=== PATIENT | male | born 1960 | race African-American/Black ===

== ENCOUNTER 2023-01-14 11:58 | Observation (INO) | payer OTHER ==
[2023-01-14] MEDS ORDERED: ASPIRIN 81 MG PO STA (12:38)
--- NOTE | 2023-01-14 12:40 | ED ---
General Adult HPI - General Chief complaint: Chest Pain Stated complaint: Chest Pain Time Seen by Provider: 01/14/23 12:02 Source: EMS Mode of arrival: EMS Limitations: no limitations - History of Present Illness Initial comments: Dictation was produced using Socratic dictation software. please excuse any grammatical, word or spelling errors. Chief Complaint: 62-year-old male presents to the emergency department for chest pain History of Present Illness: It is a 62-year-old male presents emergency department for chest pain he has past medical history of myocardial infarctions states that his pain is to his left lower anterior chest as sharp in nature. He states that his symptoms feel like when he has had a heart attack in the past. Denies any associated diaphoresis or nausea. Since being in the emergency room and states his symptoms resolved. The ROS documented in this emergency department record has been reviewed and confirmed by me. Those systems with pertinent positive or negative responses have been documented in the HPI. All other systems are other negative and/or noncontributory. - Related Data Allergies Allergy/AdvReac Type Severity Reaction Status Date / Time Iodinated Contrast Media Allergy Rash/Hives Verified 01/14/23 12:06 Review of Systems ROS Statement: Those systems with pertinent positive or pertinent negative responses have been documented in the HPI. ROS Other: All systems not noted in ROS Statement are negative. Past Medical History Past Medical History: Myocardial Infarction ([place]), Syncope Additional Past Surgical History / Comment(s): 1 stent placememt Past Psychological History: Anxiety Smoking Status: Current some day smoker Past Alcohol Use History: None Reported Past Drug Use History: None Reported General Exam - General Exam Comments Initial Comments: PHYSICAL EXAM: General Impression: Alert and oriented x3, not in acute distress HEENT: Normocephalic atraumatic, extra-ocular movements intact, pupils equal and reactive to light bilaterally, mucous membranes moist. Cardiovascular: Heart regular rate and rhythm Chest: Able to complete full sentences, no retractions, no tachypnea Abdomen: abdomen soft, non-tender, non-distended, no organomegaly Musculoskeletal: Pulses present and equal in all extremities, no peripheral edema Motor: no focal deficits noted Neurological: CN II-XII grossly intact, no focal motor or sensory deficits noted Skin: Intact with no visualized rashes Psych: Normal affect and mood Limitations: no limitations Course Vital Signs 01/14/23 13:00 Pulse Rate 76 Respiratory 18 Rate Blood Pressure 149/94 O2 Sat by Pulse 98 Oximetry Medical Decision Making - Medical Decision Making Was pt. sent in by a medical professional or institution (VIJAY Jo, GLUELINE WORKER, urgent care, hospital, or [place] [facility] [place] facility...) When possible be specific @ -No Did you speak to anyone other than the patient for history (EMS, parent, family, police, friend...)? What history was obtained from this source @ -No Did you review nursing and triage notes (agree or disagree)? Why? @ -I reviewed and agree with nursing and triage notes Were old charts reviewed (outside hosp., previous admission, EMS record, old EKG, old radiological studies, urgent care reports/EKG's, [place] [facility] [place] records)? Report findings @ -No old charts were reviewed Differential Diagnosis (chest pain, altered mental status, abdominal pain women, abdominal pain men, vaginal bleeding, musculoskeletal, weakness, fever, dyspnea, syncope, headache, dizziness, GI bleed, back pain, seizure, CVA, palpatations, mental health)? @ -Differential Chest Pain: Stable Angina, Unstable Angina, STEMI, NSTEMI Aortic Dissection, Pneumothorax, Musculoskeletal, Esophageal Spasm GERD, Cholecystitis, Pancreatitis, Zoster, this is not meant to be an all-inclusive list. EKG interpreted by me (3pts min.). @ -My EKG interpretation: Ventricular rate 60, sinus rhythm,. Interval 150, QRS 0, QTc 386. Note EKG for comparison. There does appear to be some ST depressions in inferior leads this EKG suspects ischemic changes. He is asymptomatic at the time of this EKG. Repeat EKG performed approximately 30 minutes later patient still continues to be symptomatic and still has depressions in his inferior leads with no dynamic changes compared to the first. X-rays interpreted by me (1pt min.). @ -Chest x-ray is nonacute CT interpreted by me (1pt min.). @ -None done U/S interpreted by me (1pt. min.). @ -None done What testing was considered but not performed or refused? (CT, X-rays, U/S, labs)? Why? @ -None What meds were considered but not given or refused? Why? @ -None Did you discuss the management of the patient with other professionals (professionals i.e. VIJAY Jo, GLUELINE WORKER, lab, RT, psych nurse, social media sr strategy manager, director custom, teacher, loan officer, rifle case repairer)? Give summary @ -Case is discussed with hospitalist for admission Was smoking cessation discussed for >3mins.? @ -No Was critical care preformed (if so, how long)? @ -No Were there social determinants of health that impacted care today? How? (Homelessness, low income, unemployed, alcoholism, drug addiction, transportation, low edu. Level, literacy, decrease access to med. care, [place] [facility] [place], rehab)? @ -No Was there de-escalation of care discussed even if they declined (Discuss DNR or withdrawal of care, Hospice)? DNR status @ -No What co-morbidities impacted this encounter? (DM, HTN, Smoking, COPD, CAD, Cancer, CVA, ARF, Chemo, Hep., AIDS, mental health diagnosis, sleep apnea, morbid obesity)? @ -None Was patient admitted / discharged? Hospital course, mention meds given and route, prescriptions, significant lab abnormalities, going to OR and other pertinent info. @ -Year-old male past [place] history of coronary artery disease and myocardial infarction presents to the ER for chest pain. Currently a resident at [facility] detox facility. Vital signs upon arrival are within acceptable limits. EKG shows findings consistent suspicious for ischemic changes. We do not have any old EKG. He is asymptomatic at bedside. Laboratory evaluation obtained. Labs are unremarkable. Troponin is negative. Disposition options discussed patient is agreeable for observation admission for cardiac monitoring. Undiagnosed new problem with uncertain prognosis? @ -No Drug Therapy requiring intensive monitoring for toxicity (Heparin, Nitro, Insulin, Cardizem)? @ -No Were any procedures done? @ -No Diagnosis/symptom? Acute, or Chronic, or Acute on Chronic? Uncomplicated (without systemic symptoms) or Complicated (systemic symptoms)? @ -Chest pain Side effects of treatment? @ -No Exacerbation, Progression, or Severe Exacerbation? @ -No Poses a threat to life or bodily function? How? (Chest pain, [place], [place], pneumonia, PE, COPD, DKA, ARF, appy, cholecystitis, CVA, Diverticulitis, Homicidal, Suicidal, threat to staff... and all critical care pts) @ -yes - Lab Data Result diagrams: 01/14/23 12:33 11/25/23 12:33 Lab Results 01/14/23 01/14/23 01/14/23 Range/Units 12:33 12:33 12:33 WBC 5.9 (3.8-10.6) k/uL RBC 4.43 (4.30-5.90) m/uL Hgb 10.5 L (13.0-17.5) gm/dL Hct 34.4 L (39.0-53.0) % MCV 77.7 L (80.0-100.0) fL MCH 23.6 L (25.0-35.0) pg MCHC 30.4 L (31.0-37.0) g/dL RDW 21.7 H (11.5-15.5) % Plt Count 220 (150-450) k/uL MPV 7.1 Neutrophils % 65 % Lymphocytes % 23 % Monocytes % 7 % Eosinophils % 3 % Basophils % 0 % Neutrophils # 3.8 (1.3-7.7) k/uL Lymphocytes # 1.4 (1.0-4.8) k/uL Monocytes # 0.4 (0-1.0) k/uL Eosinophils # 0.2 (0-0.7) k/uL Basophils # 0.0 (0-0.2) k/uL Hypochromasia Marked Anisocytosis Moderate Microcytosis Moderate PT 10.4 (10.0-12.5) sec INR 0.9 (<1.2) APTT 19.2 L (22.0-30.0) sec Sodium 138 (137-145) mmol/L Potassium 4.3 (3.5-5.1) mmol/L Chloride 103 (98-107) mmol/L Carbon Dioxide 29 (22-30) mmol/L Anion Gap 6 mmol/L BUN 13 (9-20) mg/dL Creatinine 0.81 (0.66-1.25) mg/dL Est GFR (CKD-EPI)AfAm >90 (>60 ml/min/1.73 sqM) Est GFR (CKD-EPI)NonAf >90 (>60 ml/min/1.73 sqM) Glucose 93 (74-99) mg/dL Calcium 9.1 (8.4-10.2) mg/dL Magnesium 2.1 (1.6-2.3) mg/dL Total Bilirubin 0.4 (0.2-1.3) mg/dL AST 41 (17-59) U/L ALT 56 H (4-49) U/L Alkaline Phosphatase 54 (38-126) U/L Troponin I (0.000-0.034) ng/mL Total Protein 6.9 (6.3-8.2) g/dL Albumin 4.0 (3.5-5.0) g/dL 01/14/23 Range/Units 12:33 WBC (3.8-10.6) k/uL RBC (4.30-5.90) m/uL Hgb (13.0-17.5) gm/dL Hct (39.0-53.0) % MCV (80.0-100.0) fL MCH (25.0-35.0) pg MCHC (31.0-37.0) g/dL RDW (11.5-15.5) % Plt Count (150-450) k/uL MPV Neutrophils % % Lymphocytes % % Monocytes % % Eosinophils % % Basophils % % Neutrophils # (1.3-7.7) k/uL Lymphocytes # (1.0-4.8) k/uL Monocytes # (0-1.0) k/uL Eosinophils # (0-0.7) k/uL Basophils # (0-0.2) k/uL Hypochromasia Anisocytosis Microcytosis PT (10.0-12.5) sec INR (<1.2) APTT (22.0-30.0) sec Sodium (137-145) mmol/L Potassium (3.5-5.1) mmol/L Chloride (98-107) mmol/L Carbon Dioxide (22-30) mmol/L Anion Gap mmol/L BUN (9-20) mg/dL Creatinine (0.66-1.25) mg/dL Est GFR (CKD-EPI)AfAm (>60 ml/min/1.73 sqM) Est GFR (CKD-EPI)NonAf (>60 ml/min/1.73 sqM) Glucose (74-99) mg/dL Calcium (8.4-10.2) mg/dL Magnesium (1.6-2.3) mg/dL Total Bilirubin (0.2-1.3) mg/dL AST (17-59) U/L ALT (4-49) U/L Alkaline Phosphatase (38-126) U/L Troponin I <0.012 (0.000-0.034) ng/mL Total Protein (6.3-8.2) g/dL Albumin (3.5-5.0) g/dL Disposition Clinical Impression: Chest pain Disposition: ADMITTED IP TO THIS [facility] Condition: Fair Referrals: Nonstaff,Physician [Primary Care Provider] - 1-2 days Decision Time: 13:52
[2023-01-14 12:43] LABS: Anisocytosis Moderate; Basophils % (A) 0 %; Eosinophils # (A) 0.2 k/uL (0-0.7); Eosinophils % (A) 3 %; HCT 34.4 % (39.0-53.0); HGB 10.5 gm/dL (13.0-17.5); Hypochromasia Marked; Lymphocytes # (A) 1.4 k/uL (1.0-4.8); Lymphocytes % (A) 23 %; MCH 23.6 pg (25.0-35.0); MCHC 30.4 g/dL (31.0-37.0); MCV 77.7 fL (80.0-100.0); Mean Platelet Volume 7.1; Microcytosis Moderate; Monocytes # (A) 0.4 k/uL (0-1.0); Monocytes % (A) 7 %; Neutrophils # (A) 3.8 k/uL (1.3-7.7); Neutrophils % (A) 65 %; Platelet Count 220 k/uL (150-450); RBC 4.43 m/uL (4.30-5.90); RDW 21.7 % (11.5-15.5); WBC 5.9 k/uL (3.8-10.6)
[2023-01-14 13:04] LABS: INR 0.9 (<1.2); Prothrombin Time 10.4 sec (10.0-12.5)
[2023-01-14 13:08] LABS: Partial Thromboplastin Time 19.2 sec (22.0-30.0)
--- NOTE | 2023-01-14 13:08 | XR ---
EXAMINATION TYPE: XR chest 2V DATE OF EXAM: 01/14/2023 COMPARISON: NONE HISTORY: Shortness of breath TECHNIQUE: Frontal and lateral views of the chest are obtained. FINDINGS: Scattered senescent parenchymal changes noted. Hyperinflation compatible with COPD. No evidence for infiltrate. No evidence for atelectasis. Heart size is stable. Mediastinal structures are stable and grossly unremarkable. No evidence for hilar prominence. Degenerative changes dorsal spine. IMPRESSION: 1. No evidence for acute pulmonary disease.
[2023-01-14 13:34] LABS: ALT 56 U/L (4-49); AST 41 U/L (17-59); African American GFR (CKD) >90 (>60 ml/min/1.73 sqM); Alkaline Phosphatase 54 U/L (38-126); Anion Gap 6 mmol/L; Blood Urea Nitrogen 13 mg/dL (9-20); Calcium 9.1 mg/dL (8.4-10.2); Carbon Dioxide 29 mmol/L (22-30); Chloride 103 mmol/L (98-107); Glucose 93 mg/dL (74-99); Magnesium 2.1 mg/dL (1.6-2.3); Non-African American GFR(CKD) >90 (>60 ml/min/1.73 sqM); Potassium 4.3 mmol/L (3.5-5.1); Sodium 138 mmol/L (137-145); Total Bilirubin 0.4 mg/dL (0.2-1.3); Total Protein 6.9 g/dL (6.3-8.2)
[2023-01-14] MEDS ORDERED: NITROGLYCERIN SL TABS 0.4 MG TAB SUBLINGUAL PRN (13:46)
[2023-01-14] MEDS ORDERED: ALBUTEROL NEBULIZED 2.5 MG/3 ML INHALATION PRN (16:04)
[2023-01-14] MEDS ORDERED: ACETAMINOPHEN TAB 325 MG TAB PO PRN (16:04)
--- NOTE | 2023-01-14 16:27 | P.HPIM ---
History of Present Illness H&P Date: 01/14/23 Patient is a 62-year-old male with history of alcohol dependence, prior [place], cardiomyopathy, hypertension, GERD, depression, COPD, nicotine dependence, alcohol dependence presenting with chest pain. He has been at [facility] for almost a week. He presented there for alcohol rehab. He claims that he currently drinks about one fifth of gin every day. His last drink is now over one week ago. This is a first of his pain to rehab. Today while walking upstairs he had sudden sharp left-sided chest pain which resolved within a few minutes. He was then sent to the emergency. He did have some shortness of breath during that time, but denied any nausea, vomiting, palpitations, abdominal pain. He denies any recent fevers, chills or urinary or bowel complaints. He sees nitrocellulose operator in [facility]. He smokes 2 or 3 cigarettes per week, denies any illicit drug use. In the ED, temperature was 97.1, pulse 76, respiratory rate 18, blood pressure 149/94, saturating at 98% on room air. WBC 5.9, hemoglobin 10.5, potassium 4.3, creatinine 0.81, magnesium 2.1, troponin negative 2. EKG independently interpreted, shows sinus rhythm with occasional PVCs. It also shows T-wave inversions in the inferior leads. Chest x-ray independently interpreted, shows no acute process. Patient given aspirin in the ED. Being admitted for chest pain workup. Cardiology consulted. Pertinent positives and negatives as discussed in HPI, a complete review of systems was performed and all other systems are negative. Patient seen and examined at bedside. Vital signs reviewed General: nontoxic, no distress, appears at stated age Derm: warm, dry Head: atraumatic, normocephalic, symmetric Eyes: EOMI, no lid lag, anicteric sclera, pupils equal round reactive to light ENT: Nose and ears atraumatic Neck: No thyromegaly, supple Mouth: no lip lesion, mucus membranes moist Cardiovascular: S1S2 reg, no murmur, no edema Lungs: clear to auscultation bilateral, no rhonchi, no rales, no wheeze, no accessory muscle use Abdominal: soft, nontender to palpation, no guarding, no appreciable organomegaly Ext: no gross muscle atrophy, muscle strength muscle strength 5 out of 5 in all 4 extremities, no contractures Neuro: CN II-XII grossly intact Psych: Alert, oriented, appropriate affect Assessment/Plan: Active: Chest pain History of MD Nicotine dependence -Continue aspirin 81 mg, rosuvastatin 40 mg daily -Continue Plavix 75 mg daily -TSH, lipid panel pending -Continue to trend troponin -Continue telemetry monitoring -Cardiology consulted, pending recommendations -Echocardiogram ordered -Counseled regarding smoking cessation Hypertension Cardiomyopathy, unknown EF -Continue amlodipine 5 mg daily, carvedilol 12.5 twice a day, hydralazine 50 mg 3 times a day, Imdur 60 mg daily -entresto 24-26 mg twice a day -Repeat BMP tomorrow Mild microcytic anemia -Unknown baseline -Iron studies ordered -Repeat CBC tomorrow Alcohol dependence -Out of the window for withdrawals -Continue multivitamins, thiamine 100 mg daily Chronic: Chronic pain GERD Depression COPD not in exacerbation The patient is admitted with an anticipated less than 2 midnight stay as observation status for evaluation of chest pain. Surrogate decision-maker: Significant other CODE STATUS: Full code DVT prophylaxis: Subcu heparin Anticipated discharge date: Pending clinical course Anticipated discharge place: Pending clinical course A total of 55 minutes was spent on the care of this complex patient more than 50% of the time was spent in counseling and care coordination. Past Medical History Past Medical History: COPD, Myocardial Infarction ([place]), Syncope Additional Past Medical History / Comment(s): arthritis in bilat knees. pt at [facility] for etoh abuse. he has went through detox already. Last Myocardial Infarction Date:: 2022 History of Any Multi-Drug Resistant Organisms: None Reported Additional Past Surgical History / Comment(s): 1 cardiac stent. Past Anesthesia/Blood Transfusion Reactions: No Reported Reaction Past Psychological History: Anxiety Smoking Status: Current some day smoker Past Alcohol Use History: None Reported Past Drug Use History: None Reported Medications and Allergies Home Medications Medication Instructions Recorded Confirmed Type Acetaminophen Tab [Tylenol] 650 mg PO Q4H PRN 01/14/23 01/14/23 History Albuterol Sulfate [Albuterol 1 - 2 puff PO RT-Q4H PRN 01/14/23 01/14/23 History Sulfate Hfa] Aspirin EC [Ecotrin Low Dose] 81 mg PO DAILY 01/14/23 01/14/23 History Calcium/Magnesium/Zinc/Vitamin D 1 tab PO TID PRN 01/14/23 01/14/23 History Chlorpheniramine Maleate 4 mg PO Q4H PRN 01/14/23 01/14/23 History [Chlor-Trimeton] Clopidogrel [Plavix] 75 mg PO DAILY 01/14/23 01/14/23 History Ergocalciferol (Vitamin D2) 1,250 mcg PO TU 01/14/23 01/14/23 History [Drisdol (50,000 Iu)] Fluoride (Sodium) [Sodium Fluoride] 1 applic DENTAL DIRECTED 01/14/23 1 03/16/22 History Fluticasone/Vilanterol [Breo 1 puff INHALATION RT-DAILY 01/14/23 01/14/23 History Ellipta 200-25 Mcg Inhaler] Gabapentin 600 mg PO TID 01/14/23 01/14/23 History Hyoscyamine Sulfate [Levsin] 0.125 mg PO QID PRN 01/14/23 01/14/23 History Isosorbide Mononitrate ER [Imdur] 60 mg PO DAILY 01/14/23 01/14/23 History Loperamide HCl [Imodium A-D] 4 mg PO QID PRN 01/14/23 01/14/23 History Mirtazapine [Remeron] 30 mg PO HS 01/14/23 01/14/23 History Multivitamins, Thera [Multivitamin 1 tab PO DAILY 01/14/23 01/14/23 History (formulary)] Pantoprazole Sodium [Protonix] 40 mg PO DAILY 01/14/23 01/14/23 History Rosuvastatin Calcium [Crestor] 40 mg PO HS 01/14/23 01/14/23 History Sacubitril/Valsartan [Entresto 24 1 tab PO BID 01/14/23 01/14/23 History mg-26 mg Tablet] Tamsulosin [Flomax] 0.8 mg PO HS 01/14/23 01/14/23 History Vitamin B Complex 1 cap PO DAILY 01/14/23 01/14/23 History amLODIPine [Norvasc] 5 mg PO DAILY 01/14/23 01/14/23 History buPROPion HCL [Wellbutrin XL] 150 mg PO DAILY 01/14/23 01/14/23 History carvediloL [Coreg] 12.5 mg PO BID 01/14/23 01/14/23 History hydrALAZINE HCL [Apresoline] 50 mg PO TID 01/14/23 01/14/23 History ondansetron HCL [Ondansetron HCl] 8 mg PO Q6H PRN 01/14/23 01/14/23 History Allergies Allergy/AdvReac Type Severity Reaction Status Date / Time Iodinated Contrast Media Allergy Rash/Hives Verified 01/14/23 12:06 Physical Exam Vitals: Vital Signs Temp Pulse Pulse Resp BP BP Pulse Ox 01/14/23 14:40 97.1 F L 77 16 146/59 99 01/14/23 14:10 77 18 153/90 96 01/14/23 14:00 77 16 01/14/23 13:00 76 18 149/94 98 Intake and Output 01/14/23 01/14/23 01/14/23 06:59 14:59 22:59 Other: Voiding Method Toilet # Voids 1 Weight 68.492 kg Results CBC & Chem 7: 01/14/23 12:33 01/14/23 12:33 Labs: Abnormal Lab Results - Last 24 Hours (Table) 01/14/23 01/14/23 01/14/23 Range/Units 12:33 12:33 12:33 Hgb 10.5 L (13.0-17.5) gm/dL Hct 34.4 L (39.0-53.0) % MCV 77.7 L (80.0-100.0) fL MCH 23.6 L (25.0-35.0) pg MCHC 30.4 L (31.0-37.0) g/dL RDW 21.7 H (11.5-15.5) % APTT 19.2 L (22.0-30.0) sec ALT 56 H (4-49) U/L Thrombosis Risk Factor Assmnt - Choose All That Apply Any of the Below Risk Factors Present?: Yes Each Factor Represents 1 point: Abnormal pulmonary function (COPD), Age 41-60 years, Obesity (BMI >25) Other Risk Factors: No Thrombosis Risk Factor Assessment Total Risk Factor Score: 3 Thrombosis Risk Factor Assessment Level: Moderate Risk
[2023-01-14] MEDS: carvediloL 12.5 MG TAB PO SCH (17:15)
[2023-01-14] MEDS: MIRTAZAPINE 15 MG TAB PO SCH (20:23)
[2023-01-14] MEDS: TAMSULOSIN 0.4 MG CAP.ER.24H PO SCH (20:24)
[2023-01-14] MEDS: GABAPENTIN 300 MG CAP PO SCH (20:24)
[2023-01-14] MEDS: SACUBITRIL/VALSARTAN 24 MG-26 MG TABLET PO SCH (20:24)
[2023-01-14] MEDS: hydrALAZINE HCL 50 MG TAB PO SCH (20:24)
[2023-01-14] MEDS: ATORVASTATIN 80 MG TAB PO SCH (20:24)
[2023-01-14] MEDS: HEPARIN SODIUM,PORCINE 5,000 UNIT/ML 1 ML VIAL SQ SCH (23:12)
[2023-01-15 04:52] LABS: Anisocytosis Moderate; Basophils % (A) 0 %; Eosinophils # (A) 0.2 k/uL (0-0.7); Eosinophils % (A) 3 %; HCT 31.8 % (39.0-53.0); HGB 9.9 gm/dL (13.0-17.5); Hypochromasia Marked; Lymphocytes # (A) 1.2 k/uL (1.0-4.8); Lymphocytes % (A) 18 %; MCH 24.3 pg (25.0-35.0); MCV 78.3 fL (80.0-100.0); Mean Platelet Volume 8.2; Microcytosis Moderate; Monocytes # (A) 0.6 k/uL (0-1.0); Monocytes % (A) 9 %; Neutrophils # (A) 4.5 k/uL (1.3-7.7); Neutrophils % (A) 68 %; Platelet Count 209 k/uL (150-450); RBC 4.06 m/uL (4.30-5.90); RDW 21.8 % (11.5-15.5); WBC 6.7 k/uL (3.8-10.6)
[2023-01-15 05:03] LABS: African American GFR (CKD) >90 (>60 ml/min/1.73 sqM); Anion Gap 6 mmol/L; Blood Urea Nitrogen 16 mg/dL (9-20); Calcium 8.5 mg/dL (8.4-10.2); Carbon Dioxide 28 mmol/L (22-30); Chloride 101 mmol/L (98-107); Glucose 135 mg/dL (74-99); Non-African American GFR(CKD) >90 (>60 ml/min/1.73 sqM); Sodium 135 mmol/L (137-145)
[2023-01-15] MEDS: SACUBITRIL/VALSARTAN 24 MG-26 MG TABLET PO SCH ×2 (07:53→21:03)
[2023-01-15] MEDS: amLODIPine 5 MG TAB PO SCH (07:53)
[2023-01-15] MEDS: buPROPion XL 150 MG TAB.ER.24H PO SCH (07:53)
[2023-01-15] MEDS: hydrALAZINE HCL 50 MG TAB PO SCH ×3 (07:53→21:03)
[2023-01-15] MEDS: PANTOPRAZOLE 40 MG TABLET PO SCH (07:54)
[2023-01-15] MEDS: ASPIRIN 81 MG PO SCH (07:54)
[2023-01-15] MEDS: carvediloL 12.5 MG TAB PO SCH ×2 (07:54→17:48)
[2023-01-15] MEDS: MULTIVITAMINS, THERA 1 EACH TAB PO SCH (07:54)
[2023-01-15] MEDS: ISOSORBIDE MONONITRATE ER 60 MG TAB.ER.24H PO SCH (07:54)
[2023-01-15] MEDS: CLOPIDOGREL 75 MG TAB PO SCH (07:55)
[2023-01-15] MEDS: THIAMINE 100 MG TAB PO SCH (07:55)
[2023-01-15] MEDS: HEPARIN SODIUM,PORCINE 5,000 UNIT/ML 1 ML VIAL SQ SCH ×3 (07:56→23:26)
[2023-01-15] MEDS: GABAPENTIN 300 MG CAP PO SCH ×3 (08:02→21:02)
[2023-01-15 08:07] VITALS: RESP 16
[2023-01-15] MEDS: SYMBICORT 160-4.5 MCG INHALER INHALATION SCH ×2 (08:37→18:23)
[2023-01-15] MEDS ORDERED: ASPIRIN 325 MG TAB PO SCH (09:00)
[2023-01-15] MEDS ORDERED: NON FORMULARY DRUG (Vitamin B Complex [Vitamin B Complex] 1 EACH Capsule) PO SCH (09:00)
[2023-01-15 09:46] LABS: Reticulocyte % 1.39 % (0.10-1.80)
[2023-01-15 10:16] LABS: % Iron Saturation 9.16 (15.00-50.00); Chol/HDL Ratio 1.93 Ratio; Ferritin 15.3 ng/mL (22.0-322.0); Iron 34 UG/DL (65-175); LDL Cholesterol,Calculated 69.1 mg/dL (0.0-131.0); Total Iron Binding Capacity 371 UG/DL (228-460); VLDL Calculation 8.78 mg/dL (5.00-40.00)
--- NOTE | 2023-01-15 13:09 | P.CRDCN ---
History of Present Illness Consult date: 01/15/23 Chief complaint: Chest pain History of present illness: The patient is a 62 year-old gentleman with a past medical history significant for coronary artery disease and prior stenting of the left circumflex in 2019 as well as hypertension and dyslipidemia and also history of cardiomyopathy according to him. The patient seen on a regular basis [place] director [place] [facility] [place] was seen by him about 2 weeks ago. Currently he is in a rehab facility he was brought there with chest discomfort. He was walking to the elevated when he developed discomfort in the middle of the chest as a tightness on the chest with no radiation to the arms or neck or shoulders or back and no sensitive symptoms of shortness of breath or dizziness or lightheadedness or any feeling of heart racing or fluttering or presyncope or syncope. Currently is chest pain-free. He underwent workup including troponin came in to be unremarkable and EKG showing sinus mechanism with T-wave inversion inferiorly. We don't have an old EKG to compare it to assess if the changes are new or old. Currently he is asymptomatic and he is mechanically stable beside slight sinus tachycardia and hypertension. The examination is remarkable for regular rhythm with a systolic murmur right upper sternal border and clear breathing sounds bilaterally and no edema in the lower extremity is Assessment Chest discomfort CAD was prior stenting of the left circumflex Multiple comorbid conditions including hypertension and dyslipidemia and smoking Plan Acute coronary event was ruled out Further cardiac testing/risk stratification including stress test and echocardiogram Increase the dose of carvedilol Follow-up with the patient Past Medical History Past Medical History: COPD, Myocardial Infarction ([place]), Syncope Additional Past Medical History / Comment(s): arthritis in bilat knees. pt at [place] for etoh abuse. he has went through detox already. Last Myocardial Infarction Date:: 2022 History of Any Multi-Drug Resistant Organisms: None Reported Additional Past Surgical History / Comment(s): 1 cardiac stent. Past Anesthesia/Blood Transfusion Reactions: No Reported Reaction Past Psychological History: Anxiety Smoking Status: Current some day smoker Past Alcohol Use History: None Reported Past Drug Use History: None Reported Medications and Allergies Home Medications Medication Instructions Recorded Confirmed Type Acetaminophen Tab [Tylenol] 650 mg PO Q4H PRN 01/14/23 01/14/23 History Albuterol Sulfate [Albuterol 1 - 2 puff PO RT-Q4H PRN 01/14/23 01/14/23 History Sulfate Hfa] Aspirin EC [Ecotrin Low Dose] 81 mg PO DAILY 01/14/23 01/14/23 History Calcium/Magnesium/Zinc/Vitamin D 1 tab PO TID PRN 01/14/23 01/14/23 History Chlorpheniramine Maleate 4 mg PO Q4H PRN 01/14/23 01/14/23 History [Chlor-Trimeton] Clopidogrel [Plavix] 75 mg PO DAILY 01/14/23 01/14/23 History Ergocalciferol (Vitamin D2) 1,250 mcg PO TU 01/14/23 01/14/23 History [Drisdol (50,000 Iu)] Fluoride (Sodium) [Sodium Fluoride] 1 applic DENTAL DIRECTED 01/14/23 01/14/23 History Fluticasone/Vilanterol [Breo 1 puff INHALATION RT-DAILY 01/14/23 01/14/23 History Ellipta 200-25 Mcg Inhaler] Gabapentin 600 mg PO TID 01/14/23 01/14/23 History Hyoscyamine Sulfate [Levsin] 0.125 mg PO QID PRN 01/14/23 01/14/23 History Isosorbide Mononitrate ER [Imdur] 60 mg PO DAILY 01/14/23 01/14/23 History Loperamide HCl [Imodium A-D] 4 mg PO QID PRN 01/14/23 01/14/23 History Mirtazapine [Remeron] 30 mg PO HS 01/14/23 01/14/23 History Multivitamins, Thera [Multivitamin 1 tab PO DAILY 01/14/23 01/14/23 History (formulary)] Pantoprazole Sodium [Protonix] 40 mg PO DAILY 01/14/23 01/14/23 History Rosuvastatin Calcium [Crestor] 40 mg PO HS 01/14/23 01/14/23 History Sacubitril/Valsartan [Entresto 24 1 tab PO BID 01/14/23 01/14/23 History mg-26 mg Tablet] Tamsulosin [Flomax] 0.8 mg PO HS 01/14/23 01/14/23 History Vitamin B Complex 1 cap PO DAILY 01/14/23 01/14/23 History amLODIPine [Norvasc] 5 mg PO DAILY 01/14/23 01/14/23 History buPROPion HCL [Wellbutrin XL] 150 mg PO DAILY 01/14/23 01/14/23 History carvediloL [Coreg] 12.5 mg PO BID 01/14/23 01/14/23 History hydrALAZINE HCL [Apresoline] 50 mg PO TID 01/14/23 01/14/23 History ondansetron HCL [Ondansetron HCl] 8 mg PO Q6H PRN 01/14/23 01/14/23 History Allergies Allergy/AdvReac Type Severity Reaction Status Date / Time Iodinated Contrast Media Allergy Rash/Hives Verified 01/14/23 12:06 Physical Exam Vitals: Vital Signs Temp Pulse Pulse Resp BP BP BP 01/15/23 08:39 01/15/23 08:00 87 16 01/15/23 07:00 98.6 F 87 16 145/87 01/15/23 03:38 98.7 F 90 18 162/89 01/14/23 18:51 97.7 F 77 18 145/87 01/14/23 14:40 97.1 F L 77 16 146/59 01/14/23 14:10 77 18 153/90 01/14/23 14:00 77 16 Pulse Ox 01/15/23 08:39 97 01/15/23 08:00 01/15/23 07:00 97 01/15/23 03:38 97 01/14/23 18:51 98 01/14/23 14:40 99 01/14/23 14:10 96 01/14/23 14:00 Intake and Output 01/14/23 01/15/23 01/15/23 22:59 06:59 14:59 Intake Total 460 480 Balance 460 480 Intake: Oral 460 480 Other: Voiding Method Toilet # Voids 2 1 Results 01/15/23 04:41 01/15/23 04:41 Cardiac Enzymes 01/14/23 01/14/23 01/14/23 Range/Units 12:33 12:33 15:06 AST 41 (17-59) U/L Troponin I <0.012 <0.012 (0.000-0.034) ng/mL 01/14/23 Range/Units 18:20 AST (17-59) U/L Troponin I <0.012 (0.000-0.034) ng/mL Coagulation 01/14/23 Range/Units 12:33 PT 10.4 (10.0-12.5) sec APTT 19.2 L (22.0-30.0) sec Lipids 01/15/23 Range/Units 04:41 Triglycerides 43.90 (0.00-149.00) mg/dL Cholesterol 162.00 (0.00-200.00) mg/dL HDL Cholesterol 84.10 H (40.00-60.00) mg/dL Cholesterol/HDL Ratio 1.93 Ratio CBC 01/15/23 Range/Units 04:41 WBC 6.7 (3.8-10.6) k/uL RBC 4.06 L (4.30-5.90) m/uL Hgb 9.9 L (13.0-17.5) gm/dL Hct 31.8 L (39.0-53.0) % Plt Count 209 (150-450) k/uL Comprehensive Metabolic Panel 01/14/23 01/15/23 Range/Units 12:33 04:41 Sodium 138 135 L (137-145) mmol/L Potassium 4.3 4.0 (3.5-5.1) mmol/L Chloride 103 101 (98-107) mmol/L Carbon Dioxide 29 28 (22-30) mmol/L BUN 13 16 (9-20) mg/dL Creatinine 0.81 0.92 (0.66-1.25) mg/dL Glucose 93 135 H (74-99) mg/dL Calcium 9.1 8.5 (8.4-10.2) mg/dL AST 41 (17-59) U/L ALT 56 H (4-49) U/L Alkaline Phosphatase 54 (38-126) U/L Total Protein 6.9 (6.3-8.2) g/dL Albumin 4.0 (3.5-5.0) g/dL Current Medications Generic Name Dose Route Start Last Admin Trade Name Freq PRN Reason Stop Dose Admin Acetaminophen 650 mg 01/14/23 16:04 Acetaminophen Tab 325 Mg Tab PO Q4H PRN Fever and/ or Pain Albuterol Sulfate 2.5 mg 01/14/23 16:04 Albuterol Nebulized 2.5 Mg/3 Ml INHALATION RT-Q4H PRN Shortness Of Breath Amlodipine Besylate 5 mg 01/15/23 09:00 01/15/23 07:53 Amlodipine 5 Mg Tab PO 5 mg DAILY YESI Administration Aspirin 81 mg 01/15/23 09:00 01/15/23 07:54 Aspirin 81 Mg PO 81 mg DAILY YESI Administration Atorvastatin Calcium 80 mg 01/14/23 21:00 01/14/23 20:24 Atorvastatin 80 Mg Tab PO 80 mg HS YESI Administration Budesonide/Formoterol Fumarate 2 puff 01/15/23 08:00 01/15/23 08:37 Symbicort 160-4.5 Mcg Inhaler INHALATION 2 puff RT-BID YESI Administration Bupropion HCl 150 mg 01/15/23 09:00 01/15/23 07:53 Bupropion Xl 150 Mg Tab.Er.24h PO 150 mg DAILY YESI Administration Carvedilol 12.5 mg 01/14/23 17:30 01/15/23 07:54 Carvedilol 12.5 Mg Tab PO 12.5 mg BID-W/MEALS YESI Administration Clopidogrel Bisulfate 75 mg 01/15/23 09:00 01/15/23 07:55 Clopidogrel 75 Mg Tab PO 75 mg DAILY YESI Administration Gabapentin 600 mg 01/14/23 22:00 01/15/23 08:02 Gabapentin 300 Mg Cap PO 600 mg TID YESI Administration Heparin Sodium (Porcine) 5,000 unit 01/15/23 00:00 01/15/23 07:56 Heparin Sodium,Porcine 5,000 Unit/Ml 1 Ml Vial SQ 5,000 unit Q8HR YESI Administration Hydralazine HCl 50 mg 01/14/23 22:00 01/15/23 07:53 Hydralazine Hcl 50 Mg Tab PO 50 mg TID YESI Administration Isosorbide Mononitrate 60 mg 01/15/23 09:00 01/15/23 07:54 Isosorbide Mononitrate Er 60 Mg Tab.Er.24h PO 60 mg DAILY YESI Administration Mirtazapine 30 mg 01/14/23 21:00 01/14/23 20:23 Mirtazapine 15 Mg Tab PO 30 mg HS YESI Administration Multivitamins 1 each 01/15/23 09:00 01/15/23 07:54 Multivitamins, Thera 1 Each Tab PO 1 each DAILY YESI Administration Nitroglycerin 0.4 mg 01/14/23 13:46 Nitroglycerin Sl Tabs 0.4 Mg Tab SUBLINGUAL Q5M PRN Chest Pain Pantoprazole Sodium 40 mg 01/15/23 09:00 01/15/23 07:54 Pantoprazole 40 Mg Tablet PO 40 mg DAILY YESI Administration Sacubitril/Valsartan 1 each 01/14/23 21:00 01/15/23 07:53 Sacubitril/Valsartan 24 Mg-26 Mg Tablet PO 1 each BID YESI Administration Tamsulosin HCl 0.8 mg 01/14/23 21:00 01/14/23 20:24 Tamsulosin 0.4 Mg Cap.Er.24h PO 0.8 mg HS YESI Administration Thiamine HCl 100 mg 01/15/23 09:00 01/15/23 07:55 Thiamine 100 Mg Tab PO 100 mg DAILY YESI Administration Intake and Output 01/14/23 01/15/23 01/15/23 22:59 06:59 14:59 Intake Total 460 480 Balance 460 480 Intake: Oral 460 480 Other: Voiding Method Toilet # Voids 2 1 01/15/23 04:41 01/15/23 04:41
--- NOTE | 2023-01-15 14:36 | P.PN ---
Subjective Progress Note Date: 01/15/23 Hospital Course: 62-year-old male with history of alcohol dependence, prior [place], cardiomyopathy, hypertension, GERD, depression, COPD, nicotine dependence, alcohol dependence presenting with chest pain. In the ED, temperature was 97.1, pulse 76, respiratory rate 18, blood pressure 149/94, saturating at 98% on room air. WBC 5.9, hemoglobin 10.5, potassium 4.3, creatinine 0.81, magnesium 2.1, troponin negative 2. EKG independently interpreted, shows sinus rhythm with occasional PVCs. It also shows T-wave inversions in the inferior leads. Chest x-ray independently interpreted, shows no acute process. Patient given aspirin in the ED. Being admitted for chest pain workup. Cardiology consulted. Pertinent Imaging: Subjective: Pertinent positives and negatives as discussed above, a complete review of systems was performed and all other systems are negative. Vitals Signs Reviewed. General: nontoxic, no distress, appears at stated age Derm: warm, dry Head: atraumatic, normocephalic, symmetric Eyes: EOMI, no lid lag, anicteric sclera, pupils equal round reactive to light ENT: Nose and ears atraumatic Neck: No thyromegaly, supple Mouth: no lip lesion, mucus membranes moist Cardiovascular: S1S2 reg, no murmur, no edema Lungs: clear to auscultation bilateral, no rhonchi, no rales, no wheeze, no accessory muscle use Abdominal: soft, nontender to palpation, no guarding, no appreciable organomegaly Ext: no gross muscle atrophy, muscle strength muscle strength 5 out of 5 in all 4 extremities, no contractures Neuro: CN II-XII grossly intact Psych: Alert, oriented, appropriate affect Data Reviewed Today: Pertinent Labs: Hemoglobin 9.9, magnesium 2, potassium 4, creatinine 0.92, total iron 34, TIBC 371, percent saturation 9.16, ferritin 15.3, troponin negative 3, total cholesterol 162, LDL 69: Imaging: EKG independently interpreted from this morning shows similar inferior lead Assessment and Plan: Patient needs close monitoring. Active: Chest pain, ACS ruled out History of [place] History of CAD Nicotine dependence -Continue aspirin 81 mg, rosuvastatin 40 mg daily -Continue Plavix 75 mg daily -Continue telemetry monitoring -Cardiology note reviewed, pending echocardiogram and stress test -Counseled regarding smoking cessation Hypertension Cardiomyopathy, unknown EF -Continue amlodipine 5 mg daily, carvedilol 12.5 twice a day, hydralazine 50 mg 3 times a day, Imdur 60 mg daily -entresto 24-26 mg twice a day -Repeat BMP tomorrow -Echocardiogram pending Iron deficiency anemia -Patient needs outpatient colonoscopy, if not previously completed -Repeat CBC tomorrow -Started on iron supplements Alcohol dependence -Continue multivitamins, thiamine 100 mg daily Chronic: Chronic pain GERD Depression COPD not in exacerbation DVT ppx: Subcu heparin Code status: Full code Anticipated discharge place: Pending clinical course Anticipated discharge time: Pending clinical course Objective - Vital Signs Vital signs: Vital Signs Temp 98.6 F 01/15/23 07:00 Pulse 87 01/15/23 14:00 Resp 16 01/15/23 14:00 BP 145/87 01/15/23 07:00 Pulse Ox 97 01/15/23 08:39 FiO2 Intake & Output 01/14/23 01/15/23 01/15/23 18:59 06:59 18:59 Intake Total 460 480 Balance 460 480 Weight 68.492 kg Intake: Oral 460 480 Other: Voiding Method Toilet Toilet # Voids 1 1 3 - Labs CBC & Chem 7: 01/15/23 04:41 01/15/23 04:41 Labs: Abnormal Lab Results - Last 24 Hours (Table) 01/15/23 01/15/23 01/15/23 Range/Units 04:41 04:41 04:41 RBC 4.06 L (4.30-5.90) m/uL Hgb 9.9 L (13.0-17.5) gm/dL Hct 31.8 L (39.0-53.0) % MCV 78.3 L (80.0-100.0) fL MCH 24.3 L (25.0-35.0) pg RDW 21.8 H (11.5-15.5) % Sodium 135 L (137-145) mmol/L Glucose 135 H (74-99) mg/dL Iron 34 L (65-175) UG/DL % Saturation 9.16 L (15.00-50.00) Ferritin 15.3 L (22.0-322.0) ng/mL HDL Cholesterol 84.10 H (40.00-60.00) mg/dL
[2023-01-15] MEDS: ASCORBIC ACID 500 MG TAB PO SCH (15:41)
[2023-01-15] MEDS: FERROUS SULFATE 325 MG TAB PO SCH (15:41)
[2023-01-15] MEDS: TAMSULOSIN 0.4 MG CAP.ER.24H PO SCH (21:02)
[2023-01-15] MEDS: ATORVASTATIN 80 MG TAB PO SCH (21:02)
[2023-01-15] MEDS: MIRTAZAPINE 15 MG TAB PO SCH (21:02)
[2023-01-16] MEDS ORDERED: AMINOPHYLLINE 500 MG/20 ML VIAL IV PRN (06:00)
[2023-01-16] MEDS ORDERED: CAFFEINE CITRATE 60 MG/3 ML VIAL IV PRN (06:00)
[2023-01-16] MEDS ORDERED: REGADENOSON 0.4 MG/5 ML SYRINGE IV PRN (06:00)
[2023-01-16] MEDS: carvediloL 12.5 MG TAB PO SCH (06:16)
[2023-01-16] MEDS ORDERED: REGADENOSON 0.4 MG/5 ML SYRINGE IV ONE (08:00)
[2023-01-16 10:58] LABS: HCT 33.6 % (39.6-50.0); HGB 9.9 g/dL (13.0-17.0); MCHC 29.5 g/dL (32.0-37.0); Mean Platelet Volume 10.6 FL (9.5-12.2); NRBC Per 100 WBC 0 X 10*3/uL (0.00-0.01); Platelet Count 267 X 10*3/uL (140-440); RBC 4.31 X 10*6/uL (4.40-5.60); WBC 6.69 X 10*3/uL (4.50-10.00)
--- NOTE | 2023-01-16 11:04 | P.PN ---
Subjective Progress Note Date: 01/16/23 The patient is a 62 year-old gentleman with a past medical history significant for coronary artery disease and prior stenting of the left circumflex in 2019 as well as hypertension and dyslipidemia and also history of cardiomyopathy according to him. The patient seen on a regular basis by a business analytics director at [facility] [place]. He was seen by him about 2 weeks ago. Currently he is in a rehab facility he was brought there with chest discomfort. He was walking to the elevated when he developed discomfort in the middle of the chest as a tightness on the chest with no radiation to the arms or neck or shoulders or back and no sensitive symptoms of shortness of breath or dizziness or lightheadedness or any feeling of heart racing or fluttering or presyncope or syncope. Currently is chest pain-free. He underwent workup including troponin came in to be unremarkable and EKG showing sinus mechanism with T-wave inversion inferiorly. We don't have an old EKG to compare it to assess if the changes are new or old. Currently he is asymptomatic and he is mechanically stable beside slight sinus tachycardia and hypertension. The examination is remarkable for regular rhythm with a systolic murmur right upper sternal border and clear breathing sounds bilaterally and no edema in the lower extremity is 01/16 Patient is seen today in follow-up. He is scheduled for Lexiscan stress test today. Coreg dose was increased yesterday. Blood pressure 127/80, heart rate in the 70s and 80s. Pulse ox 94% on room air and afebrile. Hemoglobin 9.9. Physical Examination Gen: This is a 62-year-old male appears to be in no acute distress. HEENT: Head is atraumatic, normocephalic. Pupils equal, round. Sclerae is anicteric. LUNGS: Clear to auscultation. No wheezes or rhonchi. No intercostal retractio ns. HEART: Regular rate and rhythm. Systolic murmur. ABDOMEN: Soft. Bowel sounds are present. No masses. No tenderness. EXTREMITIES: No pedal edema. Assessment Chest discomfort CAD was prior stenting of the left circumflex Multiple comorbid conditions including hypertension and dyslipidemia and smoking Plan Acute coronary event was ruled out Further cardiac testing/risk stratification including stress test and echocardiogram If Lexiscan stress test is unremarkable, patient is cleared for discharge from cardiology and may follow-up with his primary business analytics director in 1-2 weeks. Continue increased dose of carvedilol Follow-up with the patient Nurse practitioner note has been reviewed, I agree with the documented findings and plan of care. Patient was seen and examined. Objective - Vital Signs Vital signs: Vital Signs Temp 98.8 F 01/16/23 07:00 Pulse 87 01/16/23 07:00 Resp 16 01/16/23 07:00 BP 127/80 01/16/23 07:00 Pulse Ox 94 L 01/16/23 07:00 FiO2 Intake & Output 01/15/23 01/16/23 01/16/23 18:59 06:59 18:59 Intake Total 1200 Balance 1200 Intake: Oral 1200 Other: Voiding Method Toilet Toilet # Voids 3 0 - Labs CBC & Chem 7: 01/16/23 06:12 01/15/23 04:41 Labs: Abnormal Lab Results - Last 24 Hours (Table) 01/15/23 Range/Units 04:41 Iron 34 L (65-175) UG/DL % Saturation 9.16 L (15.00-50.00) Ferritin 15.3 L (22.0-322.0) ng/mL HDL Cholesterol 84.10 H (40.00-60.00) mg/dL
[2023-01-16] MEDS: CLOPIDOGREL 75 MG TAB PO SCH (11:09)
[2023-01-16] MEDS: HEPARIN SODIUM,PORCINE 5,000 UNIT/ML 1 ML VIAL SQ SCH (11:09)
[2023-01-16] MEDS: amLODIPine 5 MG TAB PO SCH (11:10)
[2023-01-16] MEDS: PANTOPRAZOLE 40 MG TABLET PO SCH (11:10)
[2023-01-16] MEDS: GABAPENTIN 300 MG CAP PO SCH (11:10)
[2023-01-16] MEDS: MULTIVITAMINS, THERA 1 EACH TAB PO SCH (11:10)
[2023-01-16] MEDS: ASCORBIC ACID 500 MG TAB PO SCH (11:10)
[2023-01-16] MEDS: ASPIRIN 81 MG PO SCH (11:10)
[2023-01-16] MEDS: FERROUS SULFATE 325 MG TAB PO SCH (11:10)
[2023-01-16] MEDS: THIAMINE 100 MG TAB PO SCH (11:10)
[2023-01-16] MEDS: buPROPion XL 150 MG TAB.ER.24H PO SCH (11:11)
[2023-01-16] MEDS: hydrALAZINE HCL 50 MG TAB PO SCH (11:11)
[2023-01-16] MEDS: ISOSORBIDE MONONITRATE ER 60 MG TAB.ER.24H PO SCH (11:11)
[2023-01-16] MEDS: SACUBITRIL/VALSARTAN 24 MG-26 MG TABLET PO SCH (11:11)
[2023-01-16 11:47] LABS: Acanthocytes 2+; Anisocytosis (M) 2+; Basophils # (A) 0.03 X 10*3/uL (0.00-0.10); Basophils % (A) 0.4 %; Elliptocytes 2+; Eosinophils # (A) 0.17 X 10*3/uL (0.04-0.35); Eosinophils % (A) 2.5 %; Hypochromasia (M) 2+; Lymphocytes # (A) 1.33 X 10*3/uL (0.90-5.00); Lymphocytes % (A) 19.9 %; Microcytosis (M) 2+; Monocytes # (A) 0.89 X 10*3/uL (0.20-1.00); Monocytes % (A) 13.3 %; Neutrophils # (A) 4.24 X 10*3/uL (1.80-7.70); Neutrophils % (A) 63.5 %
--- NOTE | 2023-01-16 11:52 | NM ---
EXAMINATION TYPE: NM stress lexiscan cardiolite DATE OF EXAM: 01/16/2023 COMPARISON: NONE CLINICAL INDICATION: Male, 62 years old with history of cp; TECHNIQUE: After the intravenous administration of 9.63 mCi Tc 99m Sestamibi - Cardiolite resting SP ECT images acquired 45 minutes post injection. The patient received 0.4mg Lexiscan, 25.8 mCi Tc 99m Sestamibi - Stress images obtained [address] injection FINDINGS: Review of stress and rest SPECT images demonstrates area of fixed defect involving the inferior later al wall with a small area of stress-induced reversibility not excluded. Gated analysis shows normal wall motion with an estimated left ventricular ejection fraction of 41 %. Report called to patient's nurse 11:48 AM 01/16/2023. IMPRESSION: 1. Small area of stress-induced reversible ischemia inferolateral wall. 2. Ejection fraction of 41%..
--- NOTE | 2023-01-16 11:52 | CA ---
Exercise Stress Test Report Name: Herb De Leon Exam Date: 01/16/2023 09:43 Exam Location: [facility] Ht (in): 65 Wt (lb): 151 BSA: 1.76 Ordering Phys: Matheus Rosas MD Referring Phys: CHAN,, Technologist: LISA Age: 62 Gender: M : 1960 Procedure CPT: Indications: Reflex order-Stress test ICD-10 Codes: Patient History: CHEST PAIN, DIFFICULTY IN BREATHING, ANGINA, HTN, ELEVATED CHOLESTEROL LEVELS, FAMILY HX OF HEART DISEASE, CURRENT SMOKER 0.25 PPD X 40 YEARS, PRIOR AR, PRIOR CATH, PRIOR STENT, COPD Medications: Meds past 24 hrs: Pretest Chest Pain: STRESS TEST Persantine Protocol Exercise Duration (min:sec): 02:[address] Depressions (mm): Angina Score: Morales Score: Resting HR (bpm): 75 Peak HR (bpm): 117 Resting BP (mmHg): 111 / 89 Peak BP (mmHg): 140 / 89 MPHR: 160 Target HR: 136 % MPHR: 73 METS: 1.0 Total Dose: Peak Dose: Atropine: Double Product: 06264 BP Response: Stress Termination: INFUSION COMPLETE Stress Symptoms: NO SYMPTOMS Stress Summary: ECG ANALYSIS Resting ECG: Stress ECG: CONCLUSIONS At baseline EKG showed normal sinus rhythm, normal axis, T-wave inversions and ST depressions V5 through V6, 2, 3, aVF, small Q wave in lead aVL with minimal 0.[address] elevation. Patient recieved IV infusion of Lexiscan 0.4mg and at peak infusion EKG showed no significant changes from baseline. Conclusions: 1. Nonspecific stress EKG portion second baseline EKG abnormalities 2. Nuclear imaging to be reported separately. Dr. Florentin Butt DO (Electronically Signed) Final Date: 16 January 2023 11:51
[2023-01-16] MEDS: SYMBICORT 160-4.5 MCG INHALER INHALATION SCH (12:43)
--- NOTE | 2023-01-16 14:15 | CA ---
Transthoracic Echo Report Name: Herb De Leon Age: 62 Gender: M : 1960 Exam Date: 01/16/2023 10:47 Exam Location: [facility] Ht (in): 65 Wt (lb): 151 Ordering Physician: Pascual Avila MD Attending/Referring Phys: Aged Or Disabled Carer Rhina Tan RDCS Procedure CPT: Indications: CP Cardiac Hx: Technical Quality: Good Contrast 1: Total Dose (mL): Contrast 2: Total Dose (mL): MEASUREMENTS (Male / Female) Normal Values 2D ECHO LV Diastolic Diameter PLAX 4.5 cm 4.2 - 5.9 / 3.9 - 5.3 cm LV Systolic Diameter PLAX 3.1 cm IVS Diastolic Thickness 1.1 cm 0.6 - 1.0 / 0.6 - 0.9 cm LVPW Diastolic Thickness 1.0 cm 0.6 - 1.0 / 0.6 - 0.9 cm LV Relative Wall Thickness 0.5 RV Internal Dim ED PLAX 2.8 cm LA Systolic Diameter LX 3.0 cm 3.0 - 4.0 / 2.7 - 3.8 cm LV Diastolic Volume MOD 4C 88.6 cm??? LV Systolic Volume MOD 4C 51.7 cm??? LV Ejection Fraction MOD 4C 41.6 % LV Cardiac Index MOD 4C 1486.6 cm???/min???m??? LV Diastolic Length 4C 7.9 cm LV Systolic Length 4C 6.9 cm LV Diastolic Volume MOD 2C 92.1 cm??? LV Systolic Volume MOD 2C 40.1 cm??? LV Ejection Fraction MOD 2C 56.4 % LV Cardiac Index MOD 2C 2098.4 cm???/min???m??? LV Diastolic Length 2C 7.8 cm LV Systolic Length 2C 6.4 cm LA Volume 45.7 cm??? 18 - 58 / 22 - 52 cm??? LA Volume Index 25.6 cm???/m??? 16 - 28 cm???/m??? M-MODE Aortic Root Diameter MM 3.4 cm MV E Point Septal Separation 1.1 cm AV Cusp Separation MM 2.5 cm DOPPLER AV Peak Velocity 116.0 cm/s AV Peak Gradient 5.4 mmHg AI Peak Velocity 255.3 cm/s AI Peak Gradient 26.1 mmHg AI Pressure Half Time 641.3 ms MV Area PHT 2.0 cm??? Mitral E Point Velocity 54.5 cm/s Mitral A Point Velocity 71.3 cm/s Mitral E to A Ratio 0.8 MV Deceleration Time 380.7 ms TR Peak Velocity 202.2 cm/s TR Peak Gradient 16.4 mmHg Right Ventricular Systolic Press 21.4 mmHg FINDINGS Left Ventricle Left ventricular ejection fraction is estimated at 40-45 %. Left ventricular cavity size normal. Left ventricular wall thickness normal. Right Ventricle Normal right ventricular size and function. Right ventricular systolic pressure within normal limits. Right Atrium Normal right atrial size. Left Atrium Normal left atrial size. Mitral Valve Structurally normal mitral valve. No mitral stenosis, regurgitation or prolapse. Aortic Valve Trileaflet aortic valve. Thickened aortic valve without stenosis. Tricuspid Valve Structurally normal tricuspid valve. Trace to mild tricuspid regurgitation. Pulmonic Valve Structurally normal pulmonic valve. Trace to mild pulmonic regurgitation. Pericardium No pericardial effusion. Aorta Normal size aortic root and proximal ascending aorta. CONCLUSIONS Left ventricular ejection fraction 40-45% Mild tricuspid regurgitation RVSP 21 No pericardial effusion Previewed by: Dr. Florentin Butt DO (Electronically Signed) Final Date: 16 January 2023 14:14
--- NOTE | 2023-01-16 15:15 | P.DS ---
Providers Date of admission: 01/14/23 13:47 Expected date of discharge: 01/16/23 Attending physician: Pascual Avila MD Consults: 01/14/23 13:46 Consult Physician Urgent Consulting Provider: Matheus Rosas Consult Reason/Comments: chest pain Do you want consulting provider notified?: Yes Primary care physician: Physician Nonstaff Hospital Course: Discharge Diagnosis: Non-anginal chest pain History of NV History of CAD Nicotine dependence Hypertension Ischemic cardiomyopathy, EF 40-45% Iron deficiency anemia Alcohol dependence Hospital Course: 62-year-old male with history of alcohol dependence, prior NV, cardiomyopathy, hypertension, GERD, depression, COPD, nicotine dependence, alcohol dependence presenting with chest pain. In the ED, temperature was 97.1, pulse 76, respiratory rate 18, blood pressure 149/94, saturating at 98% on room air. WBC 5.9, hemoglobin 10.5, potassium 4.3, creatinine 0.81, magnesium 2.1, troponin negative 2. EKG independently interpreted, shows sinus rhythm with occasional PVCs. It also shows T-wave inversions in the inferior leads. Chest x-ray independently interpreted, shows no acute process. Patient given aspirin in the ED. Being admitted for chest pain workup. Cardiology consulted. Echocardiogram showed LV EF of 40-45%, mild tricuspid regurgitation, RVSP 21. Stress test showed small area of stress-induced reversible ischemia at the inferior lateral wall. Per cardiology, he can follow up outpatient. No further interventions needed while in the hospital. He is also found to have iron deficiency anemia. Reportedly, patient had a colonoscopy 2-3 months ago where polyps were found. He is unsure how many polyps. He was told he did not have any cancerous/precancerous lesions. Will follow up with his GI specialist for repeat colonoscopy as scheduled. Patient seen and examined at bedside. Vital signs reviewed and stable. General: nontoxic, no distress, appears at stated age Derm: warm, dry Head: atraumatic, normocephalic, symmetric Eyes: EOMI, no lid lag, anicteric sclera Mouth: no lip lesion, mucus membranes moist Cardiovascular: S1S2 reg, no murmur Lungs: CTA bilateral, no rhonchi, no rales , no accessory muscle use Abdominal: soft, nontender to palpation, no guarding, no appreciable organomegaly Ext: no gross muscle atrophy, no edema, no contractures Neuro: CN II-XI grossly intact, no focal neuro deficits Psych: Alert, oriented, appropriate affect A total of 33 minutes of time were spent preparing this complex discharge summary. Patient was discharged on 01/16/23 at 15:11 . Patient Condition at Discharge: Stable Plan - Discharge Summary Discharge Rx Participant: No New Discharge Prescriptions: New Ferrous Sulfate [Iron (65 MG Elemental)] 325 mg PO W/LUNCH #60 tab Ascorbic Acid [Vitamin C] 500 mg PO DAILY #60 tab carvediloL [Coreg*] 25 mg PO BID-W/MEALS #60 tab Thiamine [Vitamin B-1] 100 mg PO DAILY #60 tab Continue Hyoscyamine Sulfate [Levsin] 0.125 mg PO QID PRN PRN Reason: Gi Upset Chlorpheniramine Maleate [Chlor-Trimeton] 4 mg PO Q4H PRN PRN Reason: Allergy Symptoms Calcium/Magnesium/Zinc/Vitamin D 1 tab PO TID PRN PRN Reason: CRAMPING Rosuvastatin Calcium [Crestor] 40 mg PO HS Pantoprazole Sodium [Protonix] 40 mg PO DAILY Mirtazapine [Remeron] 30 mg PO HS hydrALAZINE HCL [Apresoline] 50 mg PO TID Sacubitril/Valsartan [Entresto 24 mg-26 mg Tablet] 1 tab PO BID Gabapentin 600 mg PO TID buPROPion HCL [Wellbutrin XL] 150 mg PO DAILY Fluticasone/Vilanterol [Breo Ellipta 200-25 Mcg Inhaler] 1 puff INHALATION RT-DAILY amLODIPine [Norvasc] 5 mg PO DAILY Aspirin EC [Ecotrin Low Dose] 81 mg PO DAILY ondansetron HCL [Zofran] 8 mg PO Q6H PRN PRN Reason: Nausea And Vomiting Acetaminophen Tab [Tylenol] 650 mg PO Q4H PRN PRN Reason: Fever And/ Or Pain Loperamide HCl [Imodium A-D] 4 mg PO QID PRN PRN Reason: Loose Stool Vitamin B Complex 1 cap PO DAILY Ergocalciferol (Vitamin D2) [Drisdol (50,000 Iu)] 1,250 mcg PO TU Tamsulosin [Flomax] 0.8 mg PO HS Fluoride (Sodium) [Sodium Fluoride] 1 applic DENTAL DIRECTED Isosorbide Mononitrate ER [Imdur] 60 mg PO DAILY Multivitamins, Thera [Multivitamin (formulary)] 1 tab PO DAILY Clopidogrel [Plavix] 75 mg PO DAILY Albuterol Sulfate [Albuterol Sulfate Hfa] 1 - 2 puff PO RT-Q4H PRN PRN Reason: Shortness Of Breath Discontinued carvediloL [Coreg] 12.5 mg PO BID Discharge Medication List Acetaminophen Tab [Tylenol] 650 mg PO Q4H PRN 01/14/23 [History] Albuterol Sulfate [Albuterol Sulfate Hfa] 1 - 2 puff PO RT-Q4H PRN 01/14/23 [History] Aspirin EC [Ecotrin Low Dose] 81 mg PO DAILY 01/14/23 [History] Calcium/Magnesium/Zinc/Vitamin D 1 tab PO TID PRN 01/14/23 [History] Chlorpheniramine Maleate [Chlor-Trimeton] 4 mg PO Q4H PRN 01/14/23 [History] Clopidogrel [Plavix] 75 mg PO DAILY 01/14/23 [History] Ergocalciferol (Vitamin D2) [Drisdol (50,000 Iu)] 1,250 mcg PO TU 01/14/23 [History] Fluoride (Sodium) [Sodium Fluoride] 1 applic DENTAL DIRECTED 01/14/23 [History] Fluticasone/Vilanterol [Breo Ellipta 200-25 Mcg Inhaler] 1 puff INHALATION RT- DAILY 01/14/23 [History] Gabapentin 600 mg PO TID 01/14/23 [History] Hyoscyamine Sulfate [Levsin] 0.125 mg PO QID PRN 01/14/23 [History] Isosorbide Mononitrate ER [Imdur] 60 mg PO DAILY 01/14/23 [History] Loperamide HCl [Imodium A-D] 4 mg PO QID PRN 01/14/23 [History] Mirtazapine [Remeron] 30 mg PO HS 01/14/23 [History] Multivitamins, Thera [Multivitamin (formulary)] 1 tab PO DAILY 01/14/23 [History] Pantoprazole Sodium [Protonix] 40 mg PO DAILY 01/14/23 [History] Rosuvastatin Calcium [Crestor] 40 mg PO HS 01/14/23 [History] Sacubitril/Valsartan [Entresto 24 mg-26 mg Tablet] 1 tab PO BID 01/14/23 [History] Tamsulosin [Flomax] 0.8 mg PO HS 01/14/23 [History] Vitamin B Complex 1 cap PO DAILY 01/14/23 [History] amLODIPine [Norvasc] 5 mg PO DAILY 01/14/23 [History] buPROPion HCL [Wellbutrin XL] 150 mg PO DAILY 01/14/23 [History] hydrALAZINE HCL [Apresoline] 50 mg PO TID 01/14/23 [History] ondansetron HCL [Zofran] 8 mg PO Q6H PRN 01/14/23 [History] Ascorbic Acid [Vitamin C] 500 mg PO DAILY #60 tab 01/16/23 [Rx] Ferrous Sulfate [Iron (65 MG Elemental)] 325 mg PO W/LUNCH #60 tab 01/16/23 [Rx] Thiamine [Vitamin B-1] 100 mg PO DAILY #60 tab 01/16/23 [Rx] carvediloL [Coreg*] 25 mg PO BID-W/MEALS #60 tab 01/16/23 [Rx] Follow up Appointment(s)/Referral(s): Matheus Rosas MD [STAFF PHYSICIAN] - 2 Weeks Nonstaff,Physician [Primary Care Provider] - 1-2 days Patient Instructions/Handouts: Chest Pain (DC), Iron Deficiency Anemia (GEN) Activity/Diet/Wound Care/Special Instructions: Please see metal can inspector and GI specialist. Discharge Disposition: OTHER INSTITUTION NOT DEFINED
[2023-01-16 15:31] VITALS: BP 102/68; PULSE 88; TEMP 98.7
== END 2023-01-16 16:07 | disposition other institution (70) ==
LOC: EC 11:58 → 6NMEDSUR 13:47
PROVIDERS: ADMIT Student in an Organized Health Care Education/Training Program; ATTEND Student in an Organized Health Care Education/Training Program
DX: R07.89 Other chest pain (principal); I25.10 Atherosclerotic heart disease of native coronary artery without angina pectoris; I07.1 Rheumatic tricuspid insufficiency; F10.20 Alcohol dependence, uncomplicated; J44.9 Chronic obstructive pulmonary disease, unspecified; I10 Essential (primary) hypertension; I25.5 Ischemic cardiomyopathy; I49.3 Ventricular premature depolarization; D50.9 Iron deficiency anemia, unspecified; K21.9 Gastro-esophageal reflux disease without esophagitis; G89.29 Other chronic pain; F17.210 Nicotine dependence, cigarettes, uncomplicated; F41.9 Anxiety disorder, unspecified; F32.A Depression, unspecified; E78.5 Hyperlipidemia, unspecified; M17.0 Bilateral primary osteoarthritis of knee; I25.2 Old myocardial infarction; Z79.02 Long term (current) use of antithrombotics/antiplatelets; Z79.82 Long term (current) use of aspirin; Z79.51 Long term (current) use of inhaled steroids; Z79.899 Other long term (current) drug therapy; Z91.041 Radiographic dye allergy status; Z95.5 Presence of coronary angioplasty implant and graft; Z86.010 Personal history of colon polyps; Z71.6 Tobacco abuse counseling
CPT/HCPCS: 96372 ×2; 99285; 36415; 94640 ×3; 94760; 93005; 93017; 93306; 80061; 80053; 80048; 84443; 82728; 83540; 83550; 83735 ×2; 84484; 85025 ×3; 85610; 85045; 85730; 84466; 71046; 78452; G0378 ×3; A9500; J1644 ×2; J2785